=== PATIENT | female | born 1960 | race Caucasian/White ===

== ENCOUNTER 2024-04-03 04:31 | Inpatient (IN) | payer OTHER ==
[~2024-04-03] VITALS: Ht 165.1 cm; Wt 58.8 kg
[2024-04-03] MEDS ORDERED: PANT40TA29 PO (04:46)
[2024-04-03] MEDS ORDERED: LISI10TA22 PO (04:46)
[2024-04-03] MEDS ORDERED: CYCL5TAB4 PO (04:46)
[2024-04-03 12:12] LABS: BASO % 0.5 % (0.0-1.0); EOS # 0.1 10^3/uL (0.0-0.5); EOS % 0.6 % (0.0-3.0); HEMATOCRIT 48.6 % (36.0-47.0); HEMOGLOBIN 16.9 g/dl (12.0-15.5); LYMPH # 1.7 10^3/uL (1.5-5.0); LYMPH % 19.6 % (24.0-44.0); MEAN CORPUSCULAR HEMOGLOBIN 30.2 pg (27.0-33.0); MEAN CORPUSCULAR HGB CONC 34.8 g/dl (32.0-36.5); MEAN CORPUSCULAR VOLUME 86.8 fl (80.0-96.0); MONO # 0.8 10^3/uL (0.0-0.8); MONO % 9.3 % (2.0-8.0); NEUTROPHILS # 5.9 10^3/uL (1.5-8.5); NEUTROPHILS % 69.6 % (36.0-66.0); PLATELET COUNT, AUTOMATED 267 10^3/uL (150-450); WHITE BLOOD COUNT 8.5 10^3/uL (4.0-10.0)
[2024-04-03 12:39] LABS: ERYTHROCYTE SEDIMENTATION RATE 16 mm/hr (0-30)
[2024-04-03 12:41] LABS: ALKALINE PHOSPHATASE 89 U/L (35-104); ALT/SGPT 25 U/L (7.0-40); AST/SGOT 13 U/L (<34); BLOOD UREA NITROGEN 11 MG/DL (9-23); C REACTIVE PROTEIN QUANTITATIV < 0.50 MG/DL (<1.0); CALCIUM LEVEL 10.1 MG/DL (8.3-10.6); CARBON DIOXIDE LEVEL 25 MMOL/L (20-31); CHLORIDE LEVEL 100 MMOL/L (98-107); CPK CREATINE PHOSPHOKINASE 68 U/L (34-145); CREATININE FOR GFR 0.52 MG/DL (0.55-1.30); GLOMERULAR FILTRATION RATE > 60.0 (>45); GLUCOSE, FASTING 114 MG/DL (74-106); POTASSIUM SERUM 3.7 MMOL/L (3.5-5.1); SODIUM LEVEL 135 MMOL/L (136-145)
[2024-04-03] MEDS ORDERED: IMMUNE GLOBULIN 10% 40 GM in IV 1 EA IV SCH (13:45)
[2024-04-03] MEDS ORDERED: IMMUNE GLOBULIN 10% 40 GM in IV 1 EA IV ONE (13:45)
[2024-04-03] MEDS ORDERED: ACET1TAB55 PO (13:55)
[2024-04-03] MEDS ORDERED: IBUP200C29 PO (13:55)
[2024-04-03] MEDS ORDERED: ALBU8.5H INH (13:56)
[2024-04-03] MEDS ORDERED: HOME MED LIST COMPLETE! XX SCH (14:00)
[2024-04-03 14:09] LABS: VITAMIN B12 LEVEL 456 PG/ML (211-911)
[2024-04-03] MEDS ORDERED: ACETAMINOPHEN *IV* 1,000 MG in IV 1 EA IV ONE (17:00)
[2024-04-03] MEDS: ACETAMINOPHEN 500 MG TAB PO ONE (17:10)
[2024-04-04] VITALS (28 sets, daily range): BP systolic 143–177; BP diastolic 65–98; TEMP 97.4–99; O2SAT 93–98
[2024-04-04] MEDS: IMMUNE GLOBULIN 10% 40 GM in IV 1 EA IV SCH (01:16)
[2024-04-04] MEDS: DOCUSATE SODIUM 100MG CAPSULE PO SCH (02:40)
[2024-04-04] MEDS: ACETAMINOPHEN 325 MG TAB PO PRN (02:42)
[2024-04-04 06:42] LABS: HEMATOCRIT 45.9 % (36.0-47.0); HEMOGLOBIN 15.5 g/dl (12.0-15.5); MEAN CORPUSCULAR HEMOGLOBIN 29.8 pg (27.0-33.0); MEAN CORPUSCULAR HGB CONC 33.8 g/dl (32.0-36.5); MEAN CORPUSCULAR VOLUME 88.3 fl (80.0-96.0); PLATELET COUNT, AUTOMATED 248 10^3/uL (150-450); WHITE BLOOD COUNT 6.5 10^3/uL (4.0-10.0)
[2024-04-04 07:27] LABS: ALBUMIN 3.4 G/DL (3.2-5.2); ALKALINE PHOSPHATASE 77 U/L (35-104); ALT/SGPT 18 U/L (7.0-40); AST/SGOT 11 U/L (<34); BILIRUBIN,TOTAL 1.1 MG/DL (0.3-1.2); BLOOD UREA NITROGEN 15 MG/DL (9-23); CALCIUM LEVEL 9.4 MG/DL (8.3-10.6); CARBON DIOXIDE LEVEL 25 MMOL/L (20-31); CHLORIDE LEVEL 98 MMOL/L (98-107); CREATININE FOR GFR 0.55 MG/DL (0.55-1.30); GLOMERULAR FILTRATION RATE > 60.0 (>45); GLUCOSE, FASTING 121 MG/DL (74-106); POTASSIUM SERUM 3.9 MMOL/L (3.5-5.1); SODIUM LEVEL 133 MMOL/L (136-145); TOTAL PROTEIN 8.9 G/DL (5.7-8.2)
[2024-04-04] MEDS ORDERED: ENOXAPARIN 40MG/0.4ML SYRINGE (J1650 PER 10MG) SC SCH (09:00)
[2024-04-04 15:21] LABS: APPEARANCE, CSF CLEAR (CLEAR); COLOR, CSF COLORLESS (COLORLESS); CSF TUBE# CELL CNT TUBE 1
[2024-04-04 15:22] LABS: APPEARANCE, CSF CLEAR (CLEAR); COLOR, CSF COLORLESS (COLORLESS); CSF TUBE# CELL CNT TUBE 4
[2024-04-04 15:24] LABS: CSF TUBE# TP TUBE 2; TOTAL PROTEIN,CSF 123.8 MG/DL (15-45)
[2024-04-04 15:26] LABS: CSF TUBE# GLU TUBE 2
[2024-04-05] VITALS (37 sets, daily range): BP systolic 146–188; BP diastolic 74–98; TEMP 97.4–99.4; O2SAT 94–99
[2024-04-05] MEDS: IBUPROFEN 400MG TAB PO ONE (01:49)
[2024-04-05 05:33] LABS: T P ELECTROPHORESIS SO 7.8 g/dL (6.1-8.1)
[2024-04-05] MEDS: GABAPENTIN 100 MG CAP PO SCH (10:10)
[2024-04-05] MEDS: LIDOCAINE 2% JELLY 6ML SYRINGE TOP ONE (10:10)
[2024-04-05] MEDS ORDERED: LIDOCAINE 4% TOPICAL SOLN 50 ML BTL TOP ONE (11:00)
[2024-04-05] MEDS: PERCOCET 5MG/325MG TAB PO ONE (22:17)
[2024-04-06] VITALS (30 sets, daily range): BP systolic 142–184; BP diastolic 60–96; TEMP 97.1–99.3; O2SAT 70–100
[2024-04-06 06:59] LABS: HEMATOCRIT 42.9 % (36.0-47.0); HEMOGLOBIN 14.9 g/dl (12.0-15.5); MEAN CORPUSCULAR HEMOGLOBIN 30.3 pg (27.0-33.0); MEAN CORPUSCULAR HGB CONC 34.7 g/dl (32.0-36.5); MEAN CORPUSCULAR VOLUME 87.4 fl (80.0-96.0); PLATELET COUNT, AUTOMATED 217 10^3/uL (150-450); RED BLOOD COUNT 4.91 10^6/uL (4.00-5.40); WHITE BLOOD COUNT 3.4 10^3/uL (4.0-10.0)
[2024-04-06] MEDS: GABAPENTIN 100 MG CAP PO SCH (08:11)
[2024-04-06] MEDS: LIDOCAINE 5% (LIDODERM) PATCH TD SCH (09:37)
[2024-04-06] MEDS: BACLOFEN 5MG PER 1/2 TABLET PO SCH (11:01)
[2024-04-07] VITALS (16 sets, daily range): BP systolic 148–176; BP diastolic 62–94; TEMP 97.6–98.8; O2SAT 79–98
[2024-04-07 05:31] LABS: APPEARANCE, URINE CLEAR (CLEAR); BACTERIA, URINE AUTO NEGATIVE (NEGATIVE); BILIRUBIN, URINE AUTO NEGATIVE (NEGATIVE); BLOOD, URINE BLOOD 2+ (NEGATIVE); COLOR, URINE YELLOW (YELLOW); GLUCOSE, URINE (UA) AUTO NEGATIVE (NEGATIVE); KETONE, URINE AUTO NEGATIVE (NEGATIVE); LEUKOCYTE ESTERASE, URINE AUTO NEGATIVE (NEGATIVE); MUCUS, URINE SMALL (NEGATIVE); NITRITE, URINE AUTO NEGATIVE (NEGATIVE); PROTEIN, URINE AUTO NEGATIVE (NEGATIVE); RBC, URINE AUTO 1 /HPF (0-3); SPECIFIC GRAVITY URINE AUTO 1.012 (1.002-1.035); SQUAMOUS EPITHELIAL CELL UR AU 0 /HPF (0-6); UROBILINOGEN, URINE AUTO 0.2 mg/dL (0.0-2.0); WBC, URINE AUTO 1 /HPF (0-3)
[2024-04-07 08:15] LABS: BASO # 0.1 10^3/uL (0.0-0.2); BASO % 1.4 % (0.0-1.0); EOS % 0.6 % (0.0-3.0); HEMATOCRIT 46.3 % (36.0-47.0); LYMPH # 0.8 10^3/uL (1.5-5.0); LYMPH % 23.7 % (24.0-44.0); MEAN CORPUSCULAR HEMOGLOBIN 30.5 pg (27.0-33.0); MEAN CORPUSCULAR HGB CONC 34.6 g/dl (32.0-36.5); MEAN CORPUSCULAR VOLUME 88.4 fl (80.0-96.0); MONO # 0.9 10^3/uL (0.0-0.8); MONO % 25.1 % (2.0-8.0); NEUTROPHILS # 1.7 10^3/uL (1.5-8.5); NEUTROPHILS % 48.6 % (36.0-66.0); PLATELET COUNT, AUTOMATED 239 10^3/uL (150-450); RED BLOOD COUNT 5.24 10^6/uL (4.00-5.40); WHITE BLOOD COUNT 3.5 10^3/uL (4.0-10.0)
[2024-04-07 08:27] LABS: ALBUMIN 3.1 G/DL (3.2-5.2); ALKALINE PHOSPHATASE 76 U/L (35-104); ALT/SGPT 15 U/L (7.0-40); AST/SGOT 17 U/L (<34); BILIRUBIN,TOTAL 0.6 MG/DL (0.3-1.2); BLOOD UREA NITROGEN 16 MG/DL (9-23); CALCIUM LEVEL 9.9 MG/DL (8.3-10.6); CARBON DIOXIDE LEVEL 24 MMOL/L (20-31); CHLORIDE LEVEL 100 MMOL/L (98-107); CREATININE FOR GFR 0.48 MG/DL (0.55-1.30); GLOMERULAR FILTRATION RATE > 60.0 (>45); GLUCOSE, FASTING 125 MG/DL (74-106); POTASSIUM SERUM 4.1 MMOL/L (3.5-5.1); SODIUM LEVEL 133 MMOL/L (136-145); TOTAL PROTEIN 10.3 G/DL (5.7-8.2)
[2024-04-07] MEDS: SENNA 8.6 MG TAB (SENOKOT) PO SCH (08:56)
[2024-04-07 14:47] LABS: LYME TOTAL ANTIBODY CIA <= 0.90 Index (<=0.90)
[2024-04-07] MEDS: HYDROmorphone 2 MG TAB PO PRN (21:03)
[2024-04-08] MEDS: HYDROmorphone 2 MG TAB PO ONE (00:07)
[2024-04-08 04:04] VITALS: BP 155/85; TEMP 97.4; O2SAT 95
[2024-04-08 07:08] LABS: ALBUMIN SPEP 4.7 g/dL (3.8-4.8); ALPHA-1-GLOBULINS SO 0.3 g/dL (0.2-0.3); ALPHA-2-GLOBULINS SO 0.6 g/dL (0.5-0.9); BETA 2 GLOBULIN 0.5 g/dL (0.2-0.5); BETA-GLOBULIN SO 0.4 g/dL (0.4-0.6); GAMMA GLOBULINS SO 1.3 g/dL (0.8-1.7)
[2024-04-08 08:14] VITALS: BP 148/72; TEMP 96.7; O2SAT 97
[2024-04-08 16:01] VITALS: BP 154/78; TEMP 97.2; O2SAT 96
[2024-04-08 20:00] VITALS: BP 143/85; TEMP 97.1; O2SAT 96
[2024-04-09 03:00] VITALS: BP 140/65; TEMP 97.8; O2SAT 93
[2024-04-09 05:26] LABS: HEMATOCRIT 46.7 % (36.0-47.0); HEMOGLOBIN 16.1 g/dl (12.0-15.5); MEAN CORPUSCULAR HEMOGLOBIN 30.5 pg (27.0-33.0); MEAN CORPUSCULAR HGB CONC 34.5 g/dl (32.0-36.5); MEAN CORPUSCULAR VOLUME 88.4 fl (80.0-96.0); PLATELET COUNT, AUTOMATED 231 10^3/uL (150-450); RED BLOOD COUNT 5.28 10^6/uL (4.00-5.40); WHITE BLOOD COUNT 2.6 10^3/uL (4.0-10.0)
[2024-04-09 08:15] VITALS: BP 164/92; TEMP 98.1; O2SAT 94
[2024-04-09 15:47] VITALS: BP 132/68; TEMP 98.3; O2SAT 96
[2024-04-09 21:06] VITALS: BP 137/78; TEMP 97.9; O2SAT 96
[2024-04-10 04:00] VITALS: BP 143/69; TEMP 97.8; O2SAT 94
[2024-04-10 07:44] VITALS: BP 137/72; TEMP 97.3; O2SAT 95
[2024-04-10 08:43] LABS: HEMATOCRIT 46.9 % (36.0-47.0); HEMOGLOBIN 15.8 g/dl (12.0-15.5); MEAN CORPUSCULAR HGB CONC 33.7 g/dl (32.0-36.5); PLATELET COUNT, AUTOMATED 255 10^3/uL (150-450); RED BLOOD COUNT 5.27 10^6/uL (4.00-5.40); WHITE BLOOD COUNT 2.4 10^3/uL (4.0-10.0)
[2024-04-10 09:18] LABS: BLOOD UREA NITROGEN 17 MG/DL (9-23); CALCIUM LEVEL 9.4 MG/DL (8.3-10.6); CARBON DIOXIDE LEVEL 28 MMOL/L (20-31); CHLORIDE LEVEL 100 MMOL/L (98-107); CREATININE FOR GFR 0.53 MG/DL (0.55-1.30); GLOMERULAR FILTRATION RATE > 60.0 (>45); GLUCOSE, FASTING 178 MG/DL (74-106); POTASSIUM SERUM 3.8 MMOL/L (3.5-5.1); SODIUM LEVEL 134 MMOL/L (136-145)
[2024-04-10 09:38] LABS: BASO % 1.7 % (0.0-1.0); EOS # 0.1 10^3/uL (0.0-0.5); EOS % 3.4 % (0.0-3.0); LYMPH # 1.3 10^3/uL (1.5-5.0); LYMPH % 55.7 % (24.0-44.0); MONO # 0.5 10^3/uL (0.0-0.8); NEUTROPHILS % 19.8 % (36.0-66.0)
[2024-04-10 09:39] LABS: NEUTROPHILS # 0.5 10^3/uL (1.5-8.5)
[2024-04-10 12:00] VITALS: BP 136/79; TEMP 97.6; O2SAT 94
[2024-04-10 15:00] VITALS: BP 129/81; TEMP 97.3; O2SAT 97
[2024-04-10 19:59] VITALS: BP 148/72; TEMP 97.5; O2SAT 96
[2024-04-10] MEDS: RAMELTEON 8 MG TAB (ROZEREM) PO ONE (23:56)
[2024-04-10] MEDS: KETOROLAC 30 MG/ML 1ML VIAL IV ONE (23:57)
[2024-04-11 04:00] VITALS: BP 132/58; TEMP 98.2; O2SAT 95
[2024-04-11 06:00] LABS: HEMATOCRIT 45.2 % (36.0-47.0); HEMOGLOBIN 15.1 g/dl (12.0-15.5); MEAN CORPUSCULAR HGB CONC 33.4 g/dl (32.0-36.5); MEAN CORPUSCULAR VOLUME 89.9 fl (80.0-96.0); PLATELET COUNT, AUTOMATED 218 10^3/uL (150-450); RED BLOOD COUNT 5.03 10^6/uL (4.00-5.40); WHITE BLOOD COUNT 2.7 10^3/uL (4.0-10.0)
[2024-04-11 06:29] LABS: BLOOD UREA NITROGEN 26 MG/DL (9-23); CALCIUM LEVEL 9.7 MG/DL (8.3-10.6); CARBON DIOXIDE LEVEL 28 MMOL/L (20-31); CHLORIDE LEVEL 104 MMOL/L (98-107); CREATININE FOR GFR 0.61 MG/DL (0.55-1.30); GLOMERULAR FILTRATION RATE > 60.0 (>45); GLUCOSE, FASTING 105 MG/DL (74-106); POTASSIUM SERUM 4.1 MMOL/L (3.5-5.1); SODIUM LEVEL 137 MMOL/L (136-145)
[2024-04-11 12:24] VITALS: BP 133/80; TEMP 97.9; O2SAT 96
[2024-04-11] MEDS: MOM 30ML SUSPENSION UDC PO PRN (14:01)
[2024-04-11 18:11] LABS: VITAMIN B1 LEVEL WHOLE BLOOD 137 nmol/L (78-185)
[2024-04-11 21:43] VITALS: BP 118/59; TEMP 97.9; O2SAT 95
[2024-04-11] MEDS: RAMELTEON 8 MG TAB (ROZEREM) PO PRN (21:44)
[2024-04-11 21:45] VITALS: BP 133/80
[2024-04-12 04:00] VITALS: BP 133/72; TEMP 97.7; O2SAT 95
[2024-04-12 06:02] LABS: HEMATOCRIT 44.8 % (36.0-47.0); MEAN CORPUSCULAR HEMOGLOBIN 30.1 pg (27.0-33.0); MEAN CORPUSCULAR HGB CONC 33.5 g/dl (32.0-36.5); MEAN CORPUSCULAR VOLUME 89.8 fl (80.0-96.0); PLATELET COUNT, AUTOMATED 231 10^3/uL (150-450); RED BLOOD COUNT 4.99 10^6/uL (4.00-5.40); WHITE BLOOD COUNT 2.9 10^3/uL (4.0-10.0)
[2024-04-12 06:24] LABS: BLOOD UREA NITROGEN 18 MG/DL (9-23); CALCIUM LEVEL 9.5 MG/DL (8.3-10.6); CARBON DIOXIDE LEVEL 27 MMOL/L (20-31); CHLORIDE LEVEL 102 MMOL/L (98-107); CREATININE FOR GFR 0.56 MG/DL (0.55-1.30); GLOMERULAR FILTRATION RATE > 60.0 (>45); GLUCOSE, FASTING 105 MG/DL (74-106); POTASSIUM SERUM 4.7 MMOL/L (3.5-5.1); SODIUM LEVEL 135 MMOL/L (136-145)
[2024-04-12 11:50] VITALS: BP 127/69; TEMP 97.9; O2SAT 95
[2024-04-12] MEDS: BISACODYL 10MG SUPP PR ONE (13:32)
[2024-04-12] MEDS ORDERED: BACL10TA2 PO (14:19)
[2024-04-12] MEDS ORDERED: GABA-1171 PO (14:19)
[2024-04-12] MEDS ORDERED: SENO8.6T5 PO (14:19)
[2024-04-12] MEDS ORDERED: LIDO5TD TD (14:19)
[2024-04-12] MEDS ORDERED: DILA2TAB6 PO (14:19)
[2024-04-12] MEDS ORDERED: MIRA33506 PO (14:19)
[2024-04-12] MEDS ORDERED: RAME8TAB2 PO (14:19)
[2024-04-12] MEDS ORDERED: MIRALAX *UNIT DOSE* 17GM PACKET PO SCH (21:00)
== END 2024-04-12 15:42 | DRG 74 ==
LOC: M ED 04:31 → M ED INP 19:48 → M PCU 04-04 00:06 → M MSPAV 04-10 15:00
PROVIDERS: ADMIT Student in an Organized Health Care Education/Training Program; ATTEND Student in an Organized Health Care Education/Training Program
PROC: 009U3ZX Drainage of Spinal Canal, Percutaneous Approach, Diagnostic (ICD-10-PCS; principal; 2024-04-04 13:30)
DX: G61.81 Chronic inflammatory demyelinating polyneuritis (principal); I10 Essential (primary) hypertension; D70.9 Neutropenia, unspecified; F41.9 Anxiety disorder, unspecified; Z79.899 Other long term (current) drug therapy

== ENCOUNTER 2024-04-12 14:03 | Inpatient (IN) | payer OTHER ==
[~2024-04-12] VITALS: Ht 165.1 cm; Wt 59.5 kg
[~2024-04-12 14:03] MED LIST: ACET1TAB55 PO; ALBU8.5H INH; CYCL5TAB4 PO; IBUP200C29 PO; LISI10TA22 PO; PANT40TA29 PO
[2024-04-12] MEDS ORDERED: GABA-1171 PO (14:19)
[2024-04-12] MEDS ORDERED: SENO8.6T5 PO (14:19)
[2024-04-12] MEDS ORDERED: BACL10TA2 PO (14:19)
[2024-04-12] MEDS ORDERED: LIDO5TD TD (14:19)
[2024-04-12] MEDS ORDERED: RAME8TAB2 PO (14:19)
[2024-04-12] MEDS ORDERED: DILA2TAB6 PO (14:19)
[2024-04-12] MEDS ORDERED: MIRA33506 PO (14:19)
[2024-04-12] MEDS ORDERED: SIMETHICONE 80MG CHEW TAB PO PRN (15:30)
[2024-04-12] MEDS ORDERED: ALBUTEROL 90 MCG/ACT 8GM HFA INHALER INH PRN (15:30)
[2024-04-12] MEDS ORDERED: BISACODYL 5MG TAB PO PRN (15:30)
[2024-04-12] MEDS ORDERED: MOM 30ML SUSPENSION UDC PO PRN (15:30)
[2024-04-12] MEDS ORDERED: MAALOX 30 ML SUSP *UDC PO PRN (15:30)
[2024-04-12] MEDS ORDERED: ONDANSETRON 4MG TAB PO PRN (15:30)
[2024-04-12] MEDS ORDERED: BISACODYL 10MG SUPP PR PRN (15:30)
[2024-04-12 16:00] VITALS: BP 118/73; TEMP 98.2; O2SAT 97
[2024-04-12] MEDS ORDERED: PILL CUTTER 1 EACH XX PRN (16:20)
[2024-04-12] MEDS: GABAPENTIN 100 MG CAP PO SCH (16:29)
[2024-04-12] MEDS: BACLOFEN 10 MG TAB PO SCH (16:29)
[2024-04-12] MEDS: ACETAMINOPHEN 325 MG TAB PO PRN (16:33)
[2024-04-12 20:47] VITALS: BP 128/78; TEMP 97.8; O2SAT 96
[2024-04-12] MEDS: MIRALAX *UNIT DOSE* 17GM PACKET PO SCH (21:06)
[2024-04-12] MEDS: SENOKOT S TAB PO SCH (21:07)
[2024-04-12] MEDS: RAMELTEON 8 MG TAB (ROZEREM) PO PRN (21:10)
[2024-04-12] MEDS: IBUPROFEN 400MG TAB PO PRN (21:12)
[2024-04-13] MEDS: CYCLOBENZAPRINE 5MG TABLET PO PRN (00:28)
[2024-04-13 04:33] VITALS: BP 133/69; TEMP 97.8; O2SAT 95
[2024-04-13 06:51] LABS: HEMATOCRIT 41.8 % (36.0-47.0); HEMOGLOBIN 14.5 g/dl (12.0-15.5); MEAN CORPUSCULAR HEMOGLOBIN 30.7 pg (27.0-33.0); MEAN CORPUSCULAR HGB CONC 34.7 g/dl (32.0-36.5); MEAN CORPUSCULAR VOLUME 88.4 fl (80.0-96.0); PLATELET COUNT, AUTOMATED 226 10^3/uL (150-450); RED BLOOD COUNT 4.73 10^6/uL (4.00-5.40); WHITE BLOOD COUNT 2.6 10^3/uL (4.0-10.0)
[2024-04-13 07:23] LABS: ALKALINE PHOSPHATASE 66 U/L (35-104); ALT/SGPT 41 U/L (7.0-40); AST/SGOT 32 U/L (<34); ATYPICAL LYMPH 10 % (0-5); BASOPHILS 2 % (0-1); BILIRUBIN,TOTAL 0.5 MG/DL (0.3-1.2); BLOOD UREA NITROGEN 19 MG/DL (9-23); CALCIUM LEVEL 9.3 MG/DL (8.3-10.6); CARBON DIOXIDE LEVEL 26 MMOL/L (20-31); CHLORIDE LEVEL 105 MMOL/L (98-107); CREATININE FOR GFR 0.59 MG/DL (0.55-1.30); EOSINOPHILS 5 % (0-3); GLOMERULAR FILTRATION RATE > 60.0 (>45); GLUCOSE, FASTING 104 MG/DL (74-106); LYMPHOCYTES 45 % (16-44); MONOCYTES 16 % (0-5); NEUTROPHILS 22 % (28-66); POTASSIUM SERUM 4.1 MMOL/L (3.5-5.1); SODIUM LEVEL 138 MMOL/L (136-145); TOTAL PROTEIN 7.4 G/DL (5.7-8.2)
[2024-04-13 07:25] LABS: PLATELET ESTIMATE NORMAL (NORMAL)
[2024-04-13] MEDS: PANTOPRAZOLE 40MG TAB (PROTONIX) PO SCH (07:52)
[2024-04-13] MEDS: LIDOCAINE 5% (LIDODERM) PATCH TD SCH (07:53)
[2024-04-13 12:00] VITALS: BP 128/67; TEMP 98.8; O2SAT 97
[2024-04-13 20:34] VITALS: BP 183/85; TEMP 97.5; O2SAT 96
[2024-04-13 20:45] VITALS: BP 142/84
[2024-04-14] MEDS: HYDROmorphone 2 MG TAB PO PRN (02:57)
[2024-04-14 04:07] VITALS: BP 157/78; TEMP 97.9; O2SAT 96
[2024-04-14] MEDS ORDERED: HYDROmorphone 2 MG TAB PO PRN ×3 (08:55)
[2024-04-14 12:00] VITALS: BP 130/69; TEMP 98.9; O2SAT 99
[2024-04-14 20:00] VITALS: BP 140/82; TEMP 98.3; O2SAT 95
[2024-04-15] MEDS: HYDROmorphone 2 MG TAB PO PRN (02:51)
[2024-04-15 04:00] VITALS: BP 137/92; TEMP 97.8; O2SAT 96
[2024-04-15 07:16] LABS: EOS # 0.2 10^3/uL (0.0-0.5); EOS % 5.4 % (0.0-3.0); HEMATOCRIT 41.7 % (36.0-47.0); LYMPH # 1.6 10^3/uL (1.5-5.0); LYMPH % 52.5 % (24.0-44.0); MEAN CORPUSCULAR HEMOGLOBIN 30.1 pg (27.0-33.0); MEAN CORPUSCULAR HGB CONC 33.6 g/dl (32.0-36.5); MEAN CORPUSCULAR VOLUME 89.7 fl (80.0-96.0); MONO # 0.4 10^3/uL (0.0-0.8); MONO % 13.7 % (2.0-8.0); NEUTROPHILS % 27.1 % (36.0-66.0); PLATELET COUNT, AUTOMATED 220 10^3/uL (150-450); RED BLOOD COUNT 4.65 10^6/uL (4.00-5.40)
[2024-04-15 07:31] LABS: NEUTROPHILS # 0.8 10^3/uL (1.5-8.5)
[2024-04-15 12:00] VITALS: BP 137/70; TEMP 98.3; O2SAT 98
[2024-04-15 20:00] VITALS: BP 148/80; TEMP 97; O2SAT 98
[2024-04-15] MEDS: PREGABALIN 75 MG CAP(LYRICA) PO SCH (20:45)
[2024-04-16 04:00] VITALS: BP 134/75; TEMP 98; O2SAT 96
[2024-04-16 12:00] VITALS: BP 128/68; TEMP 97.9; O2SAT 98
[2024-04-16] MEDS: GABAPENTIN 300 MG CAP PO SCH (16:12)
[2024-04-16 20:00] VITALS: BP 138/99; TEMP 97.9; O2SAT 97
[2024-04-17 04:00] VITALS: BP 122/71; TEMP 97.5; O2SAT 96
[2024-04-17 12:00] VITALS: BP 123/60; TEMP 98.1; O2SAT 98
[2024-04-17 20:41] VITALS: BP 106/58; TEMP 97.7; O2SAT 97
[2024-04-18 04:35] VITALS: BP 118/63; TEMP 97.2; O2SAT 97
[2024-04-18 07:27] LABS: BASO % 1.1 % (0.0-1.0); EOS # 0.1 10^3/uL (0.0-0.5); EOS % 3.4 % (0.0-3.0); HEMATOCRIT 41.1 % (36.0-47.0); HEMOGLOBIN 13.9 g/dl (12.0-15.5); LYMPH # 1.7 10^3/uL (1.5-5.0); LYMPH % 49.3 % (24.0-44.0); MEAN CORPUSCULAR HEMOGLOBIN 30.3 pg (27.0-33.0); MEAN CORPUSCULAR HGB CONC 33.8 g/dl (32.0-36.5); MEAN CORPUSCULAR VOLUME 89.7 fl (80.0-96.0); MONO # 0.4 10^3/uL (0.0-0.8); MONO % 10.9 % (2.0-8.0); NEUTROPHILS # 1.2 10^3/uL (1.5-8.5); NEUTROPHILS % 34.7 % (36.0-66.0); PLATELET COUNT, AUTOMATED 226 10^3/uL (150-450); RED BLOOD COUNT 4.58 10^6/uL (4.00-5.40); WHITE BLOOD COUNT 3.5 10^3/uL (4.0-10.0)
[2024-04-18 12:00] VITALS: BP 118/65; TEMP 98.4; O2SAT 95
[2024-04-18 20:16] VITALS: BP 125/70; TEMP 97.6; O2SAT 95
[2024-04-18] MEDS: GABAPENTIN 300 MG CAP PO SCH (21:12)
[2024-04-19 03:52] VITALS: BP 94/52; TEMP 97.6; O2SAT 95
[2024-04-19 12:00] VITALS: BP 122/59; TEMP 97.1; O2SAT 96
[2024-04-19] MEDS: GABAPENTIN 300 MG CAP PO SCH (12:30)
[2024-04-19 20:00] VITALS: BP 123/74; TEMP 97.1; O2SAT 99
[2024-04-20 04:00] VITALS: BP 106/56; TEMP 98; O2SAT 96
[2024-04-20 12:00] VITALS: BP 110/53; TEMP 98.6
[2024-04-20 20:00] VITALS: BP 132/73; TEMP 98.8; O2SAT 96
[2024-04-21 04:00] VITALS: BP 120/64; TEMP 97; O2SAT 94
[2024-04-21 12:00] VITALS: BP 133/65; TEMP 98.2; O2SAT 98
[2024-04-21 19:20] VITALS: BP 119/68; TEMP 98.8; O2SAT 97
[2024-04-22 03:25] VITALS: BP 125/67; TEMP 97.8; O2SAT 97
[2024-04-22 07:18] LABS: EOS # 0.2 10^3/uL (0.0-0.5); EOS % 3.9 % (0.0-3.0); HEMATOCRIT 37.8 % (36.0-47.0); HEMOGLOBIN 12.9 g/dl (12.0-15.5); LYMPH # 1.7 10^3/uL (1.5-5.0); LYMPH % 43.3 % (24.0-44.0); MEAN CORPUSCULAR HEMOGLOBIN 30.3 pg (27.0-33.0); MEAN CORPUSCULAR HGB CONC 34.1 g/dl (32.0-36.5); MEAN CORPUSCULAR VOLUME 88.7 fl (80.0-96.0); MONO # 0.4 10^3/uL (0.0-0.8); MONO % 9.7 % (2.0-8.0); NEUTROPHILS # 1.6 10^3/uL (1.5-8.5); NEUTROPHILS % 41.8 % (36.0-66.0); PLATELET COUNT, AUTOMATED 220 10^3/uL (150-450); RED BLOOD COUNT 4.26 10^6/uL (4.00-5.40); WHITE BLOOD COUNT 3.8 10^3/uL (4.0-10.0)
[2024-04-22 07:43] LABS: BLOOD UREA NITROGEN 14 MG/DL (9-23); CALCIUM LEVEL 9.3 MG/DL (8.3-10.6); CARBON DIOXIDE LEVEL 28 MMOL/L (20-31); CHLORIDE LEVEL 107 MMOL/L (98-107); CREATININE FOR GFR 0.66 MG/DL (0.55-1.30); GLOMERULAR FILTRATION RATE > 60.0 (>45); GLUCOSE, FASTING 98 MG/DL (74-106); POTASSIUM SERUM 4.2 MMOL/L (3.5-5.1); SODIUM LEVEL 140 MMOL/L (136-145)
[2024-04-22 12:00] VITALS: BP 120/59; TEMP 98.3; O2SAT 98
[2024-04-22] MEDS: GABAPENTIN 300 MG CAP PO SCH ×2 (17:16→23:45)
[2024-04-22 20:05] VITALS: BP 126/56; TEMP 96.4; O2SAT 96
[2024-04-23 04:35] VITALS: BP 104/56; TEMP 96.8; O2SAT 95
[2024-04-23 12:47] VITALS: BP 114/57; TEMP 98.1; O2SAT 97
[2024-04-23 20:11] VITALS: BP 132/58; TEMP 96.4; O2SAT 98
[2024-04-24 04:31] VITALS: BP 107/56; TEMP 98; O2SAT 92
[2024-04-24 12:00] VITALS: BP 112/66; TEMP 98.1; O2SAT 96
[2024-04-24 20:00] VITALS: BP 113/55; TEMP 96.6; O2SAT 96
[2024-04-25 04:00] VITALS: BP 103/58; TEMP 98.1; O2SAT 94
[2024-04-25 07:01] LABS: BASO % 1.1 % (0.0-1.0); BLOOD UREA NITROGEN 12 MG/DL (9-23); CALCIUM LEVEL 9.5 MG/DL (8.3-10.6); CARBON DIOXIDE LEVEL 31 MMOL/L (20-31); CHLORIDE LEVEL 109 MMOL/L (98-107); CREATININE FOR GFR 0.69 MG/DL (0.55-1.30); EOS # 0.1 10^3/uL (0.0-0.5); EOS % 3.2 % (0.0-3.0); GLOMERULAR FILTRATION RATE > 60.0 (>45); GLUCOSE, FASTING 94 MG/DL (74-106); HEMATOCRIT 36.9 % (36.0-47.0); HEMOGLOBIN 12.5 g/dl (12.0-15.5); LYMPH # 1.9 10^3/uL (1.5-5.0); LYMPH % 49.1 % (24.0-44.0); MEAN CORPUSCULAR HEMOGLOBIN 30.3 pg (27.0-33.0); MEAN CORPUSCULAR HGB CONC 33.9 g/dl (32.0-36.5); MEAN CORPUSCULAR VOLUME 89.3 fl (80.0-96.0); MONO # 0.3 10^3/uL (0.0-0.8); MONO % 8.5 % (2.0-8.0); NEUTROPHILS # 1.4 10^3/uL (1.5-8.5); NEUTROPHILS % 37.3 % (36.0-66.0); PLATELET COUNT, AUTOMATED 208 10^3/uL (150-450); POTASSIUM SERUM 3.8 MMOL/L (3.5-5.1); RED BLOOD COUNT 4.13 10^6/uL (4.00-5.40); SODIUM LEVEL 141 MMOL/L (136-145); WHITE BLOOD COUNT 3.8 10^3/uL (4.0-10.0)
[2024-04-25 12:00] VITALS: BP 125/60; TEMP 98.4; O2SAT 100
[2024-04-25 20:00] VITALS: BP 112/67; TEMP 98.3; O2SAT 97
[2024-04-26 04:00] VITALS: BP 101/56; TEMP 97.4; O2SAT 96
[2024-04-26 12:00] VITALS: BP 140/78; TEMP 97.5; O2SAT 99
[2024-04-26] MEDS ORDERED: GABA-1172 PO (16:15)
[2024-04-26] MEDS ORDERED: DILA2TAB6 PO (16:15)
[2024-04-26] MEDS ORDERED: IBUP-1114 PO (16:15)
[2024-04-26] MEDS ORDERED: ALBU8.5H INH (16:15)
[2024-04-26] MEDS ORDERED: PANT40TA29 PO (16:15)
[2024-04-26] MEDS ORDERED: LIDO5TD TD (16:15)
[2024-04-26] MEDS ORDERED: CYCL5TAB4 PO (16:15)
[2024-04-26] MEDS ORDERED: BACL10TA2 PO (16:15)
[2024-04-26] MEDS ORDERED: LISI10TA22 PO (16:15)
[2024-04-26] MEDS ORDERED: RAME8TAB2 PO (16:15)
[2024-04-26] MEDS ORDERED: MIRA33506 PO (16:15)
[2024-04-26 19:32] VITALS: BP 151/68; TEMP 98.3; O2SAT 97
[2024-04-27 05:36] VITALS: BP 102/56; TEMP 98.3; O2SAT 99
[2024-04-27 12:00] VITALS: BP 118/59; TEMP 97.8; O2SAT 99
[2024-04-27 19:40] VITALS: BP 137/80; TEMP 97.5; O2SAT 97
[2024-04-28 05:41] VITALS: BP 131/70; TEMP 97.9; O2SAT 97
[2024-04-28 12:00] VITALS: BP 98/54; TEMP 98.4; O2SAT 95
[2024-04-28 20:03] VITALS: BP 152/83; TEMP 98.2; O2SAT 97
[2024-04-28 20:55] VITALS: BP 152/83
[2024-04-29 04:24] VITALS: BP 119/62; TEMP 97.3; O2SAT 94
[2024-04-29 07:28] LABS: BASO % 0.9 % (0.0-1.0); EOS # 0.2 10^3/uL (0.0-0.5); EOS % 3.6 % (0.0-3.0); HEMATOCRIT 41.3 % (36.0-47.0); HEMOGLOBIN 13.7 g/dl (12.0-15.5); LYMPH % 42.1 % (24.0-44.0); MEAN CORPUSCULAR HGB CONC 33.2 g/dl (32.0-36.5); MEAN CORPUSCULAR VOLUME 90.6 fl (80.0-96.0); MONO # 0.4 10^3/uL (0.0-0.8); MONO % 8.9 % (2.0-8.0); NEUTROPHILS # 2.1 10^3/uL (1.5-8.5); NEUTROPHILS % 44.3 % (36.0-66.0); PLATELET COUNT, AUTOMATED 220 10^3/uL (150-450); RED BLOOD COUNT 4.56 10^6/uL (4.00-5.40); WHITE BLOOD COUNT 4.7 10^3/uL (4.0-10.0)
[2024-04-29 09:30] VITALS: O2SAT 98
== END 2024-04-29 11:25 | disposition home or self-care (01) | DRG 74 ==
LOC: M PM&R 15:50
PROVIDERS: ADMIT Physical Medicine & Rehabilitation; ATTEND Physical Medicine & Rehabilitation
DX: G61.81 Chronic inflammatory demyelinating polyneuritis (principal); I10 Essential (primary) hypertension; G47.00 Insomnia, unspecified; F41.9 Anxiety disorder, unspecified; D70.9 Neutropenia, unspecified; Z74.1 Need for assistance with personal care; Z74.09 Other reduced mobility; Z79.899 Other long term (current) drug therapy